=== PATIENT | male | born 1995 | race Caucasian/White ===

== ENCOUNTER 2024-10-08 14:05 | Emergency (ER) | payer OTHER, SELFPAY ==
[2024-10-08 14:09] VITALS: BP 126/77; PULSE 86; RESP 15; TEMP 36.2; O2SAT 94
[2024-10-08 14:13] VITALS: BP 126/77; PULSE 86; RESP 15; TEMP 36.2; O2SAT 94
--- NOTE | 2024-10-08 15:06 | ED.GENADUL_ITS ---
Discharge Plan Disposition Patient Disposition: Against Medical Advice Condition: Fair Discharge Details Clinical Impression: Hepatitis Primary Care Provider: Unknown,Unknown ED Provider: Nathen Ferreira Recommendations for Follow Up Recommended tests to be ordered by follow up provider: Repeat liver function tests, US to rule out biliary obstruction. Home Meds and New Rx's Prescriptions: No Action No Known Home Meds Discharge Instructions Instructions: Hepatitis A Additional Instructions: As discussed, you are leaving AGAINST MEDICAL ADVICE. Although your history and exam suggest that you likely contracted hepatitis A from your grandmother and otherwise well at this time, I cannot say whether or not you will get worse which could lead to acute liver failure with permanent disability or ; or if your symptoms and liver function test elevations are secondary to another disease process entirely. I would highly recommend following up with primary care provider to repeat these lab function test and also obtain an ultrasound to assess the liver and surrounding structures for any other causes of these problems. I would highly recommend returning emergently for evaluation if you develop fever, worsening pain, jaundice or yellowing of the skin, easy bruising, or signs of bleeding to include vomiting or defecating blood. Discharge Data Discharge Date/Time-TO BE ENTERED AT DEPARTURE: 10/08/24 18:03 HPI General Date/Time Provider Initiated Documentation: 10/08/24 14:10 . HPI Narrative: MDM/Narrative: 29-year-old male presents as above. Vital signs within normal limits. Given patient's reported symptoms and exam findings there is concern for possible viral syndrome, I suspect less likely this represents an acute hepatitis although patient is concerned due to recent family infection with hepatitis A. As such we will obtain screening labs to include LFTs, CBC, lipase, and hepatitis panel. Suspect patient will be able to discharge given he is overall well with no significant vital sign abnormality or significant tenderness on abdominal examination. Results evaluated. Patient has significant elevation of hepatic function tests, as well as alkaline phosphatase. Given that his ALT is higher than his AST this likely represents a recent hepatitis A infection or active infection. As such would like to obtain imaging to screen for biliary obstruction which would also explain the patient's liver enzymes however we do not have ultrasound available at this time. Patient was offered the plan to be admitted for observation, repeat lab testing and obtain ultrasound imaging in the morning however at this time he feels well, and does not believe need to stay in the hospital. It was explained to him that I cannot guarantee that his liver is in recovery at this time and thinks could be getting worse which may result in morbid disability or even . Patient is aware of the risk, and request to leave AGAINST MEDICAL ADVICE. Disposition: AMA HPI: The patient is a 29-year-old male with a known exposure to hepatitis A, presenting with nausea, vomiting, and diarrhea. The patient reports symptoms beginning on 10/04/2024, including epigastric discomfort, dark urine, sensations of warmth, restlessness, and occasional myalgia localized to the shoulder and back. He denies the presence of rashes, tick or insect bites, diarrhea, cough, rhinorrhea, or pharyngitis. On Saturday night, he experienced diaphoresis and chills, suggestive of pyrexia, which has since resolved. He notes that his urine darkens in the absence of adequate hydration. The patient had contact with his [id number], who was diagnosed with hepatitis A in August 2024. He administered acetaminophen 500 mg at 0700 hours and currently reports no pain. He describes mild gastroesophageal reflux disease (GERD) symptoms but denies nausea. His recommended seeking medical attention. ROS: Negative besides as mentioned above Exam: Vital signs: Reviewed. General Appearance: Alert and oriented. No acute distress. HEENT: NCAT, EOMI, not icteric. External ears normal. No rhinorrhea. Moist mucous membranes. Neck: Supple, full range of motion, no observable masses, No meningeal sign. Respiratory: Clear breath sounds, no wheezing or crackles. Cardiovascular: Regular heart sounds, no murmurs. Gastrointestinal: Mild upper abdominal discomfort, no severe tenderness. Back: No midline tenderness to palpation or palpable step-offs of the C/T/L spine. Skin: Warm and dry, no rash. Neurological: Normal Gait, Grossly intact. Psychiatric: Appropriate for situation. Labs: Laboratory Tests Range/Units 10/08/24 10/08/24 10/08/24 15:03 15:09 16:25 WBC (4.4-10.8) 10^3/uL 4.25 L RBC (4.36-5.78) 10^6/uL 5.14 Hgb (13.5-17.5) g/dL 14.9 Hct (40.0-50.0) % 42.8 MCV (80-95) fL 83 MCH (27.0-33.0) pg 29.0 MCHC (32.0-36.0) % 34.8 RDW (11.8-14.1) % 11.9 Plt Count (130-400) 10^3/uL 90 L MPV (8.0-11.0) fL 12.5 H Immature Gran % % 0.0 Neutrophils % % 59.0 Lymphocytes % % 24.0 Atypical Lymphs % % 7 Monocytes % % 10.0 Eosinophils % % 0.0 Basophils % % 0.0 Nucleated RBC % (0.0-0.3) % 0.0 Absolute Neutrophils (1.2-6.7) 10^3/uL 2.51 Absolute Lymphocytes (1.2-3.4) 10^3/uL 1.32 Absolute Monocytes (0.1-0.8) 10^3/uL 0.43 Absolute Eosinophils (0.0-0.7) 10^3/uL 0.00 Absolute Basophils (0.0-0.2) 10^3/uL 0.00 RBC Morphology Normal PT (9.1-11.1) sec 10.7 INR (0.9-1.1) 1.1 APTT (20.6-30.2) sec 26.0 Sodium (136-145) mmol/L 140 Potassium (3.5-5.1) mmol/L 4.2 Chloride (98-107) mmol/L 103 Carbon Dioxide (21.0-32.0) mmol/L 28.4 Anion Gap (3-11) mmol/L 8.6 BUN (7-18) mg/dL 11 Creatinine (0.70-1.30) mg/dL 0.7 Est GFR (CKD-EPI 2020) (mL/min/1.73m2) 128.71 Glucose (74-106) mg/dL 92 Calcium (8.5-10.1) mg/dL 8.7 Magnesium (1.8-2.4) mg/dL 2.1 Total Bilirubin (0.2-1.0) mg/dL 4.0 H AST (15-37) U/L 2964 H ALT (16-63) U/L 4063 H Alkaline Phosphatase (46-116) U/L 223 H Troponin I (<or=76) ng/L < 4 Total Protein (6.4-8.2) g/dL 7.0 Albumin (3.4-5.0) g/dL 3.9 Lipase (<78) U/L 23 Urine Color (Yellow) Dark Yellow Urine Clarity (Clear) Clear Urine pH (5-8) 6.5 Ur Specific [place] (1.005-1.025) 1.025 Urine Protein (Neg-Trace) mg/dL 100 H Urine Ketones (Negative) mg/dL 80 H Urine Blood (Negative) Negative Urine Nitrite (Negative) Negative Urine Bilirubin (Negative) Large H Urine Urobilinogen (Up to 0.2) mg/dL 2.0 H Ur Leukocyte Esterase (Negative) Negative Urine RBC (0-2) HPF Negative Urine WBC (0-5) HPF 3-5 Ur Epithelial Cells (Negative) HPF Rare Urine Crystals (Negative) HPF Negative Urine Bacteria (Negative) HPF Few Urine Casts (Negative) LPF Negative Urine Mucus (Negative) Trace Ur Culture Indicated? No Urine Glucose (Negative) mg/dL Negative Related Data Home Medications ?Medication ?Instructions ?Recorded ?Confirmed Unknown [No Known Home Meds] 10/08/24 0 10/08/24 Allergies Allergy/AdvReac Type Severity Reaction Status Date / Time Penicillins Allergy Unknown Unknown Unverified 10/08/24 14:14 General Stated Complaint: Nausea/Vomit/Diar KEV: 4 Course Vital Signs Vital signs: Vital Signs Temperature 36.2 C L 10/08/24 14:09 Pulse 86 10/08/24 14:09 Respiratory Rate 15 10/08/24 14:09 Blood Pressure 126/77 10/08/24 14:09 Pulse Oximetry 94 10/08/24 14:09 Temperature 36.2 C L 10/08/24 14:13 Temperature Source Oral 10/08/24 14:13 Pulse 86 10/08/24 14:13 Respiratory Rate 15 10/08/24 14:13 Blood Pressure 126/77 10/08/24 14:13 Blood Pressure Position Sitting 10/08/24 14:13 Pulse Oximetry 94 10/08/24 14:13 Oxygen Delivery Method Room Air 10/08/24 14:13 Oxygen Flow Rate 0 10/08/24 14:13 Pain Level 0 10/08/24 14:13 PFSH All Active Problems (Updated 10/08/24 @ 17:02 by Nathen Ferreira MD) Hepatitis (Acute) Surgical History (Updated 12/04/17 @ 14:36 by [employer] [facility]) Tonsillectomy Social History Smoking/Tobacco Use Status: Never Smoking risk assessment performed?: Yes Alcohol Intake: never Drug use: Never Do you feel safe in your relationship?: Yes
[2024-10-08 15:20] LABS: HCT 42.8 % (40.0-50.0); HGB 14.9 g/dL (13.5-17.5); MCH 29.0 pg (27.0-33.0); MCHC 34.8 % (32.0-36.0); MCV 83 fL (80-95); MPV 12.5 fL (8.0-11.0); RBC 5.14 10^6/uL (4.36-5.78); RDW 11.9 % (11.8-14.1); RDW-SD 36.2 fL; WBC 4.25 10^3/uL (4.4-10.8)
[2024-10-08 15:40] LABS: INR 1.1 (0.9-1.1); PTT Activated 26.0 sec (20.6-30.2); Prothrombin Time 10.7 sec (9.1-11.1)
[2024-10-08 15:42] LABS: Abs Immature Grans 0.00 10^3/uL (0.0-0.06); Immature Grans % 0.0 %
[2024-10-08 15:43] LABS: RBC Morphology Normal
[2024-10-08 15:44] LABS: Platelet Count 90 10^3/uL (130-400)
[2024-10-08 16:02] LABS: Albumin 3.9 g/dL (3.4-5.0); Alkaline Phosphatase 223 U/L (46-116); Anion Gap 8.6 mmol/L (3-11); BUN 11 mg/dL (7-18); Bilirubin, Total 4.0 mg/dL (0.2-1.0); CO2 28.4 mmol/L (21.0-32.0); Calcium 8.7 mg/dL (8.5-10.1); Chloride 103 mmol/L (98-107); Estimated GFR 128.71 (mL/min/1.73m2); Glucose 92 mg/dL (74-106); Magnesium 2.1 mg/dL (1.8-2.4); Potassium 4.2 mmol/L (3.5-5.1); Sodium 140 mmol/L (136-145); Total Protein 7.0 g/dL (6.4-8.2); Troponin I < 4 ng/L (<or=76)
[2024-10-08 16:19] LABS: Lipase 23 U/L (<78)
[2024-10-08 16:22] LABS: AST 2964 U/L (15-37)
[2024-10-08 16:32] LABS: Glucose Negative (Negative)
[2024-10-08 16:45] LABS: ALT 4063 U/L (16-63)
[2024-10-08 16:45] LABS: C & S Indicated? No; RBC Negative HPF (0-2)
[2024-10-09 10:06] LABS: Hepatitis C Ab w Rflx HCV PCR Negative (Negative)
[2024-10-09 11:26] LABS: Hepatitis A Antibody IgM Positive (Negative)
--- NOTE | 2024-10-09 13:20 | ED.FU.B_ITS ---
Date of service: 10/09/24 Time of Service: 13:32 Follow Up Plan: Patient is hepatitis A positive. I did call the patient and discussed these results with him. He states that he feels well, no severe fatigue, bleeding or bruising. He has a scheduled follow-up appointment with his newly established primary care provider in 4 days on Saturday of next week. On review of the patient's lab his transaminitis is are elevated, his PT PTT and INR are normal though. He demonstrates no confusion to reflect hyperammonemia. Patient will follow-up closely with Mu Ibanez next week for repeat blood work and reassessment. I have extensively reviewed the treatment plan and discharge instructions with the patient. I have addressed all patient concerns at this time. The patient was made aware of what symptoms to monitor for that would warrant a return to the emergency department. Discussed the plan with the nely multani, they demonstrate verbal understanding and agreement with our assessment and plan at this time. The documentation in this chart was dictated using [employer] dictation software. Please excuse any dictation errors.
== END 2024-10-08 18:03 | disposition left against medical advice (07) ==
PROVIDERS: Emergency Provider General Practice
DX: K75.9 Inflammatory liver disease, unspecified (principal); B15.9 Hepatitis A without hepatic coma; Z53.29 Procedure and treatment not carried out because of patient's decision for other reasons
CPT/HCPCS: 99283 ×2; 36415; 80053; 83690; 86704; 86709; 86803; 87340; 81003; 81015; 83735; 84484; 85025; 85610; 85730

== ENCOUNTER 2024-10-13 15:23 | Outpatient (REF) | payer OTHER, SELFPAY ==
[2024-10-13 21:33] LABS: Albumin 3.6 g/dL (3.4-5.0); Alkaline Phosphatase 245 U/L (46-116); Anion Gap 9.0 mmol/L (3-11); BUN 10 mg/dL (7-18); Bilirubin, Total 11.0 mg/dL (0.2-1.0); CO2 29.0 mmol/L (21.0-32.0); Calcium 8.5 mg/dL (8.5-10.1); Chloride 100 mmol/L (98-107); Estimated GFR 123.63 (mL/min/1.73m2); Glucose 116 mg/dL (74-106); Potassium 4.2 mmol/L (3.5-5.1); Sodium 138 mmol/L (136-145); Total Protein 6.7 g/dL (6.4-8.2)
[2024-10-13 22:08] LABS: AST 2627 U/L (15-37)
[2024-10-13 22:27] LABS: ALT 7680 U/L (16-63)
== END 2024-10-13 15:24 | disposition home or self-care (01) ==
LOC: LBN 15:23
PROVIDERS: Visit Provider Nurse Practitioner Family
DX: K75.9 Inflammatory liver disease, unspecified (principal)
CPT/HCPCS: 80053